=== PATIENT | male | born 1980 | race Caucasian/White ===

== ENCOUNTER → 2023-07-18 | Outpatient (REF) | payer BC ==
[2023-07-18 14:47] LABS: HIV 1&2 SCREEN NEGATIVE (NEGATIVE)
[2023-07-18 14:54] LABS: HEPATITIS B CORE ANTIBODY IGM NEGATIVE (NEGATIVE)
[2023-07-18 14:55] LABS: HEPATITIS C VIRUS ABY INDEX < 0.02 INDEX (<0.8)
== END ==
LOC: M SFHCADAM 09:11
PROVIDERS: ATTEND Physician Assistant
DX: L40.0 Psoriasis vulgaris (principal)